=== PATIENT | male | born 1955 | race Hispanic/Latino ===

== ENCOUNTER 2019-04-26 20:13 | Inpatient (IN) | payer MEDICARE ==
[2019-04-26] MEDS ORDERED: GEODON IM PRN (23:23)
[2019-04-26] MEDS ORDERED: WATER FOR INJ Sterile (PF) 10 ML ONE (23:46)
[2019-04-27] MEDS ORDERED: MELATONIN PO PRN (02:21)
[2019-04-27 06:51] LABS: Basophils # (Auto) 0.1 K/mm3 (0.0-0.1); Basophils % (Auto) 0.9 % (0.0-1.8); Eosinophils # (Auto) 0.2 K/mm3 (0.0-0.4); Eosinophils % (Auto) 1.9 % (0.0-4.3); Lymphocytes # (Auto) 4.3 K/mm3 (1.2-5.4); Lymphocytes % (Auto) 44.4 % (13.4-35.0); Mean Corpuscular HGB Conc 36 % (32-34); Mean Corpuscular Volume 101 fl (84-94); Monocytes # (Auto) 0.9 K/mm3 (0.0-0.8); Monocytes % (Auto) 9.5 % (0.0-7.3); Platelet Count 160 K/mm3 (140-440); Red Blood Count 4.08 M/mm3 (3.65-5.03); Red Cell Distribution Width 15.9 % (13.2-15.2)
[2019-04-27 06:53] LABS: Hematocrit 41.2 % (35.5-45.6)
[2019-04-27 07:05] LABS: Hemoglobin 14.7 gm/dl (11.8-15.2)
[2019-04-27] MEDS: BUSPAR PO SCH ×2 (09:12→21:05)
[2019-04-27 10:27] LABS: Alanine Aminotransferase 62 units/L (7-56); Albumin 4.3 g/dL (3.9-5); BUN/Creatinine Ratio 26; Blood Urea Nitrogen 23 mg/dL (9-20); Calcium 9.8 mg/dL (8.4-10.2); Chol/HDL Ratio 6.06 %; HDL Cholesterol 31 mg/dL (40-59); Hemolysis Index 8; LDL Cholesterol,Direct 129 mg/dL (50-130)
[2019-04-27] MEDS: REMERON PO SCH (17:39)
--- NOTE | 2019-04-27 17:59 | History and Physical Report ---
History of Present Illness Date of admission: 04/26/19 21:44 Chief complaint: I was acting crazy History of present illness: 63 YO Male with CVA, Dementia, HLD, Anemia, Depression. Pt admitted to [facility] for psychosis. Pt seen and evaluated upon arrival to his room. Pt is pleasant and cooperative with exam. Pt denies fever, chills, CP, Palpitations, NVD, Trauma, Productive cough, or recent ill contacts,. No reported nursing events. Pt denies any complaints. Past History Past Medical History: anemia, hyperlipidemia, stroke Past Surgical History: Other (Back, Neck surgery) Social history: , lives with family. denies: smoking Family history: hypertension Medications and Allergies Allergies Allergy/AdvReac Type Severity Reaction Status Date / Time No Known Allergies Allergy Verified 04/26/19 23:30 Home Medications Medication Instructions Recorded Confirmed Last Taken Type Aspirin 81 mg PO DAILY 04/27/19 04/27/19 Unknown History Atorvastatin 40 mg PO DAILY 04/27/19 04/27/19 Unknown History B-Complex Tablet PO 04/27/19 Unknown History Belbuca 450 mcg 04/27/19 Unknown History Donepezil 10 mg PO DAILY 04/27/19 04/27/19 Unknown History Ferrous Sulfate 325 mg PO DAILY 04/27/19 04/27/19 Unknown History Lisinopril 20 mg PO DAILY 04/27/19 04/27/19 Unknown History Melatonin 5MG TAB 5 mg PO QHS 04/27/19 04/27/19 Unknown History Mirtazapine 30 mg PO DAILY 04/27/19 04/27/19 Unknown History Sertraline 100 mg PO QHS 04/27/19 04/27/19 Unknown History Vitamin D (Nf) mg PO DAILY 04/27/19 Unknown History Vitamin E 1000units PO DAILY 04/27/19 Unknown History amLODIPine 5 mg PO DAILY 04/27/19 04/27/19 Unknown History busPIRone 30 mg pe PO BID 04/27/19 04/27/19 Unknown History oxyCODONE 10 - 325 mg PO TID 04/27/19 04/27/19 Unknown History Active Meds: Active Medications Buspirone HCl (Buspar) 30 mg PO BID ANDREY Last Admin: 04/27/19 09:12 Dose: 30 mg Documented by: Donepezil HCl (Aricept) 5 mg PO QHS [facility] Melatonin (Melatonin) 5 mg PO QHS PRN PRN Reason: Sleep Mirtazapine (Remeron) 30 mg PO DAILY [facility] Last Admin: 04/27/19 17:39 Dose: 30 mg Documented by: Sertraline HCl (Zoloft) 100 mg PO QHS [facility] Ziprasidone (Geodon) 10 mg IM Q8HR PRN PRN Reason: Agitation Last Admin: 04/26/19 23:53 Dose: 10 mg Documented by: Review of Systems Constitutional: no weight loss, no fever, no sweats Ears, nose, mouth and throat: no ear pain, no tinnitis, no nose pain, no nasal discharge Cardiovascular: no chest pain, no edema, no lightheadedness, no shortness of breath Respiratory: no cough, no hemoptysis, no dyspnea on exertion, no wheezing Gastrointestinal: no abdominal pain, no vomiting, no constipation, no hematemesis Genitourinary Male: no hematuria, no urinary frequency, no incontinence Rectal: no pain, no incontinence Musculoskeletal: low back pain, no neck stiffness, no neck pain Integumentary: no rash, no redness, no wounds Neurological: no transient paralysis, no weakness, no numbness, no seizures Psychiatric: no anxiety, no change in sleep habits, no insomnia, no change in appetite Endocrine: no cold intolerance, no excessive thirst, no nocturia Hematologic/Lymphatic: no easy bruising, no easy bleeding Allergic/Immunologic: no urticaria, no allergic rhinitis Exam - Constitutional Vitals: Temp Pulse Resp BP Pulse Ox 98.2 F 75 16 123/85 98 04/27/19 09:18 04/27/19 09:18 04/27/19 09:18 04/27/19 09:18 04/27/19 09:18 General appearance: Present: no acute distress, well-nourished - EENT Eyes: Present: PERRL ENT: hearing intact, clear oral mucosa - Neck Neck: Present: supple, normal ROM - Respiratory Respiratory effort: normal Respiratory: bilateral: CTA - Cardiovascular Heart Sounds: Present: S1 & S2. Absent: rub, click - Extremities Extremities: pulses symmetrical, No edema Peripheral Pulses: within normal limits - Abdominal General gastrointestinal: Present: soft, non-tender, non-distended, normal bowel sounds Male genitourinary: Present: normal - Integumentary Integumentary: Present: clear, warm, dry - Musculoskeletal Musculoskeletal: gait normal, strength equal bilaterally - Psychiatric Psychiatric: appropriate mood/affect, intact judgment & insight - Neurologic Neurologic: CNII-XII intact, moves all extremities Results - Labs CBC & Chem 7: 04/27/19 06:26 04/27/19 08:59 Labs: Abnormal lab results 04/27/19 04/27/19 Range/Units 06:26 08:59 MCV 101 H (84-94) fl MCH 36 H (28-32) pg MCHC 36 H (32-34) % RDW 15.9 H (13.2-15.2) % Lymph % (Auto) 44.4 H (13.4-35.0) % [place] % (Auto) 9.5 H (0.0-7.3) % [place] # 0.9 H (0.0-0.8) K/mm3 Carbon Dioxide 21 L (22-30) mmol/L BUN 23 H (9-20) mg/dL Glucose 124 H (75-100) mg/dL AST 59 H (5-40) units/L ALT 62 H (7-56) units/L Total Protein 8.4 H (6.3-8.2) g/dL Triglycerides 156 H (2-149) mg/dL HDL Cholesterol 31 L (40-59) mg/dL Assessment and Plan - Patient Problems (1) HTN (hypertension) Current Visit: Yes Status: Acute Qualifiers: Hypertension type: essential hypertension Qualified Code(s): I10 - Essential (primary) hypertension Plan to address problem: Monitor bp q shift, continue prehospital therapy, supportive care. (2) HLD (hyperlipidemia) Current Visit: Yes Status: Acute Qualifiers: Hyperlipidemia type: mixed hyperlipidemia Qualified Code(s): E78.2 - Mixed hyperlipidemia Plan to address problem: low cholesterol diet, supportive care, statin therapy (3) Dementia Current Visit: Yes Status: Acute Qualifiers: Dementia behavioral disturbance: with behavioral disturbance Plan to address problem: continue prehospital therapy, supportive care.
[2019-04-27] MEDS ORDERED: OXYCODONE 10 MG PO SCH (20:00)
[2019-04-27] MEDS: ROXICODONE PO SCH (21:04)
[2019-04-27] MEDS: ZOLOFT PO SCH (21:04)
[2019-04-27] MEDS: ARICEPT PO SCH (21:05)
[2019-04-27] MEDS ORDERED: MELATONIN 5 MG PO SCH (22:00)
[2019-04-27] MEDS ORDERED: NON-FORMULARY (Sertraline 100 MG) PO SCH (22:00)
[2019-04-27] MEDS ORDERED: ARICEPT PO SCH (22:00)
[2019-04-27] MEDS ORDERED: BUSPIRONE 30 MG PO SCH (22:00)
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
[2019-04-28] MEDS ORDERED: NON-FORMULARY (Atorvastatin 40 MG) PO SCH (10:00)
[2019-04-28] MEDS ORDERED: NON-FORMULARY (Amlodipine 5 MG) PO SCH (10:00)
[2019-04-28] MEDS ORDERED: MIRTAZAPINE 30 MG PO SCH (10:00)
[2019-04-28] MEDS ORDERED: NON-FORMULARY (Ferrous Sulfate 325 MG) PO SCH (10:00)
[2019-04-28] MEDS ORDERED: NON-FORMULARY (Aspirin 81 MG) PO SCH (10:00)
[2019-04-28] MEDS ORDERED: DONEPEZIL 10 MG PO SCH (10:00)
[2019-04-28] MEDS ORDERED: NON-FORMULARY (Lisinopril 20 MG) PO SCH (10:00)
[2019-04-28] MEDS: ROXICODONE PO SCH ×3 (11:42→19:50)
[2019-04-28] MEDS: BABY ASPIRIN PO SCH (11:44)
[2019-04-28] MEDS: FEOSOL PO SCH (11:45)
[2019-04-28] MEDS: BUSPAR PO SCH ×2 (11:45→21:23)
[2019-04-28] MEDS: NORVASC PO SCH (11:48)
[2019-04-28] MEDS: ZESTRIL PO SCH (11:51)
--- NOTE | 2019-04-28 17:47 | Progress Note ---
Subjective Date of service: 04/28/19 Principal diagnosis: Dementia with behavioral disturbance Subjective Comment: Patient is confused, disorganized and unable to care for self. He is cooperative with cares, pleasantly confused this morning, denies si/hi/avh. He is compliant with medications. No side effects reported or observed. Objective - Criteria for Continued Treatment Criteria for Continued Treatment: Improving Level of Functioning, Stablizing Level of Functioning, Improving Emotional/Socia - Mental Status Mental Status: Oriented x 1 Person only - Objective Observation Participation Level: Moderate Assessment and Plan - Patient Problems (1) Dementia, Alzheimer's, with behavior disturbance Current Visit: Yes Status: Acute Qualifiers: Alzheimer's disease onset: early-onset Qualified Code(s): G30.0 - Alzheimer's disease with early onset; F02.81 - Dementia in other diseases classified elsewhere with behavioral disturbance Plan to address problem: Patient will be admitted for inpatient psychiatric evaluation, medication adjustment and close monitoring The patient's behavior, mood, sleep and appetite will be closely monitored. Patient will be enrolled in individual and group therapeutic sessions and encouraged to attend. Patient will be provided with a safe and structured environment. Patient's physical health needs will be addressed by the Hospitalist. Social Assessment will be completed and the Red Leader will work with patient and family to ensure a suitable and safe disposition Medication adjustment will be made as clinically indicated
[2019-04-28] MEDS: ZOLOFT PO SCH (21:23)
[2019-04-28] MEDS: REMERON PO SCH (21:23)
[2019-04-28] MEDS: ARICEPT PO SCH (21:23)
[2019-04-29] MEDS: REMERON PO SCH ×2 (04:00→21:06)
[2019-04-29] MEDS: ROXICODONE PO SCH ×3 (10:10→21:05)
[2019-04-29] MEDS: BABY ASPIRIN PO SCH (10:11)
[2019-04-29] MEDS: FEOSOL PO SCH (10:11)
[2019-04-29] MEDS: NORVASC PO SCH (10:11)
[2019-04-29] MEDS: ZESTRIL PO SCH (10:12)
[2019-04-29] MEDS: BUSPAR PO SCH ×2 (10:19→21:07)
[2019-04-29] MEDS: ZOLOFT PO SCH (21:06)
[2019-04-29] MEDS: ARICEPT PO SCH (21:07)
--- NOTE | 2019-04-29 21:15 | Progress Note ---
Subjective Date of service: 04/29/19 Principal diagnosis: Dementia with behavioral disturbance Subjective Comment: Patient is confused, disorganized and unable to care for self. He is cooperative with cares, denies si/hi/avh. He is compliant with medications. No side effects reported or observed. Objective - Criteria for Continued Treatment Criteria for Continued Treatment: Improving Level of Functioning, Stablizing Level of Functioning, Improving Emotional/Socia - Mental Status Mental Status: Oriented x 1 Person only - Objective Observation Participation Level: Moderate Assessment and Plan - Patient Problems (1) Dementia, Alzheimer's, with behavior disturbance Current Visit: Yes Status: Acute Qualifiers: Alzheimer's disease onset: early-onset Qualified Code(s): G30.0 - Alzhe tana's disease with early onset; F02.81 - Dementia in other diseases classified elsewhere with behavioral disturbance Plan to address problem: Patient will be admitted for inpatient psychiatric evaluation, medication adjustment and close monitoring The patient's behavior, mood, sleep and appetite will be closely monitored. Patient will be enrolled in individual and group therapeutic sessions and encouraged to attend. Patient will be provided with a safe and structured environment. Patient's physical health needs will be addressed by the Hospitalist. Social Assessment will be completed and the Senior Property Accountant will work with patient and family to ensure a suitable and safe disposition Medication adjustment will be made as clinically indicated
[2019-04-30] MEDS: ROXICODONE PO SCH ×3 (09:24→21:17)
[2019-04-30] MEDS: BABY ASPIRIN PO SCH (09:26)
[2019-04-30] MEDS: FEOSOL PO SCH (09:26)
[2019-04-30] MEDS: BUSPAR PO SCH ×2 (09:26→21:15)
[2019-04-30] MEDS: ZESTRIL PO SCH (09:26)
[2019-04-30] MEDS: NORVASC PO SCH (09:27)
[2019-04-30] MEDS: ZOLOFT PO SCH (21:14)
[2019-04-30] MEDS: REMERON PO SCH (21:16)
[2019-04-30] MEDS: ARICEPT PO SCH (21:33)
[2019-05-01] MEDS: ROXICODONE PO SCH ×3 (08:10→20:11)
[2019-05-01] MEDS: FEOSOL PO SCH (12:10)
[2019-05-01] MEDS: BUSPAR PO SCH ×2 (12:10→21:21)
[2019-05-01] MEDS: BABY ASPIRIN PO SCH (12:10)
[2019-05-01] MEDS: NORVASC PO SCH (12:13)
[2019-05-01] MEDS: ZESTRIL PO SCH (12:14)
--- NOTE | 2019-05-01 20:34 | Progress Note ---
Subjective Date of service: 04/30/19 Principal diagnosis: Dementia with behavioral disturbance Subjective Comment: Patient is pleasantly confused, calm and pleasant. He is cooperative with cares, denies si/hi/avh. He is compliant with medications. No side effects reported or observed. Objective - Criteria for Continued Treatment Criteria for Continued Treatment: Improving Level of Functioning, Stablizing Level of Functioning, Improving Emotional/Socia - Mental Status Mental Status: Oriented x 1 Person only - Objective Observation Participation Level: Moderate Assessment and Plan - Patient Problems (1) Dementia, Alzheimer's, with behavior disturbance Current Visit: Yes Status: Acute Qualifiers: Alzheimer's disease onset: early-onset Qualified Code(s): G30.0 - Alzheimer's disease with early onset; F02.81 - Dementia in other diseases classified elsewhere with behavioral disturbance Plan to address problem: Patient will be admitted for inpatient psychiatric evaluation, medication adjustment and close monitoring The patient's behavior, mood, sleep and appetite will be closely monitored. Patient will be enrolled in individual and group therapeutic sessions and encouraged to attend. Patient will be provided with a safe and structured environment. Patient's physical health needs will be addressed by the Hospitalist. Social Assessment will be completed and the Test Rack Operator will work with patient and family to ensure a suitable and safe disposition Medication adjustment will be made as clinically indicated
--- NOTE | 2019-05-01 20:36 | Progress Note ---
Subjective Date of service: 04/30/19 Principal diagnosis: Dementia with behavioral disturbance Subjective Comment: Patient is pleasantly confused, calm and pleasant. He is cooperative with cares, denies si/hi/avh. He is compliant with medications. No side effects reported or observed. Objective - Criteria for Continued Treatment Criteria for Continued Treatment: Improving Level of Functioning, Stablizing Level of Functioning - Mental Status Mental Status: Oriented x [address] - Objective Observation Participation Level: Moderate Assessment and Plan - Patient Problems (1) Dementia, Alzheimer's, with behavior disturbance Current Visit: Yes Status: Acute Qualifiers: Alzheimer's disease onset: early-onset Qualified Code(s): G30.0 - Alzheimer's disease with early onset; F02.81 - Dementia in other diseases classified elsewhere with behavioral disturbance Plan to address problem: Patient will be admitted for inpatient psychiatric evaluation, medication adjustment and close monitoring The patient's behavior, mood, sleep and appetite will be closely monitored. Patient will be enrolled in individual and group therapeutic sessions and encouraged to attend. Patient will be provided with a safe and structured environment. Patient's physical health needs will be addressed by the Hospitalist. Social Assessment will be completed and the Patriot Missile Air Defense Artillery will work with patient and family to ensure a suitable and safe disposition Medication adjustment will be made as clinically indicated
[2019-05-01] MEDS: ARICEPT PO SCH (21:20)
[2019-05-01] MEDS: REMERON PO SCH (21:21)
[2019-05-01] MEDS: ZOLOFT PO SCH (21:21)
[2019-05-02] MEDS: ROXICODONE PO SCH ×2 (07:12→13:58)
--- NOTE | 2019-05-02 08:26 | Discharge Summary ---
Providers - Providers Date of Admission: 04/26/19 21:44 Date of discharge: 05/02/19 Attending physician: KINJAL WALKER MD 04/27/19 08:00 Consult to Physician [CONS] Routine Comment: Consulting Provider: CALLY SUTTON Physician Instructions: Reason For Exam: NEW ADMIT H&P Primary care physician: KINJAL WALKER MD Hospitalization Reason for admission: Increased agitation and aggressive behavior Condition: Stable Hospital course: The patient was provided inpatient psychiatric treatment with safe and supp ortive environment, group therapy, individual counseling, psychiatric medication, medication adjustment, adverse effect monitor, medical evaluation, medical treatment, social service assessment, family/social support meeting, placement assessment and psycho-education. The patients mood, anxiety, thoughts, stress management skill, cognition, impulse/anger control, motivation, understanding of disease, compliance to treatment and appreciation on family/social support are improved and stabilized. At the time of discharge, the patient had no suicidal ideas, no homicidal ideas, no aggressive thoughts, no endangering behavior and no debilitating adverse effects. The patient agreed on the treatment plan, understood the risk, benefit, alternative treatment, potential consequence of no treatment, and gave informed consent. The patient was advised to be compliant with medications, not to use drugs and not to drink alcohol. The patient understands that if suicidal ideas, homicidal ideas, or any endangering thoughts arise, the patient should immediately seek for emergent assistance including but not limited to crisis hot line and emergency room. Follow up with out-patient Psychiatrist and PCP within 14 - 21 days of discharge. Disposition: -01 TO HOME OR SELFCARE Time spent for discharge: 38 mins Allergies/Adverse Reactions: Allergies No Known Allergies Allergy (Verified 04/26/19 23:30) Vital Signs: Last Vital Signs Temp 98.4 F 05/01/19 20:47 Pulse 81 05/01/19 20:47 Resp 18 05/01/19 20:47 BP 128/75 05/01/19 20:47 Pulse Ox 96 05/01/19 20:47 Last Lab: Laboratory Last Values WBC 9.7 K/mm3 (4.5-11.0) 04/27/19 06:26 RBC 4.08 M/mm3 (3.65-5.03) 04/27/19 06:26 Hgb 14.7 gm/dl (11.8-15.2) 04/27/19 06:26 Hct 41.2 % (35.5-45.6) 04/27/19 06:26 MCV 101 fl (84-94) H 04/27/19 06:26 MCH 36 pg (28-32) H 04/27/19 06:26 MCHC 36 % (32-34) H 04/27/19 06:26 RDW 15.9 % (13.2-15.2) H 04/27/19 06:26 Plt Count 160 K/mm3 (140-440) 04/27/19 06:26 Lymph % (Auto) 44.4 % (13.4-35.0) H 04/27/19 06:26 [place] % (Auto) 9.5 % (0.0-7.3) H 04/27/19 06:26 Eos % (Auto) 1.9 % (0.0-4.3) 04/27/19 06:26 Baso % (Auto) 0.9 % (0.0-1.8) 04/27/19 06:26 Lymph # 4.3 K/mm3 (1.2-5.4) 04/27/19 06:26 [place] # 0.9 K/mm3 (0.0-0.8) H 04/27/19 06:26 Eos # 0.2 K/mm3 (0.0-0.4) 04/27/19 06:26 Baso # 0.1 K/mm3 (0.0-0.1) 04/27/19 06:26 Seg Neutrophils % 43.3 % (40.0-70.0) 04/27/19 06:26 Seg Neutrophils # 4.2 K/mm3 (1.8-7.7) 04/27/19 06:26 Sodium 140 mmol/L (137-145) 04/27/19 08:59 Potassium 3.7 mmol/L (3.6-5.0) 04/27/19 08:59 Chloride 102.3 mmol/L (98-107) 04/27/19 08:59 Carbon Dioxide 21 mmol/L (22-30) L 04/27/19 08:59 20 mmol/L 04/27/19 08:59 BUN 23 mg/dL (9-20) H 04/27/19 08:59 0.9 mg/dL (0.8-1.5) 04/27/19 08:59 Estimated GFR > 60 ml/min 04/27/19 08:59 26 % 04/27/19 08:59 Glucose 124 mg/dL (75-100) H 04/27/19 08:59 POC Glucose 109 (70-105) H 04/29/19 19:27 5.2 % (4-6) 04/27/19 06:26 Calcium 9.8 mg/dL (8.4-10.2) 04/27/19 08:59 0.50 mg/dL (0.1-1.2) 04/27/19 08:59 AST 59 units/L (5-40) H 04/27/19 08:59 ALT 62 units/L (7-56) H 04/27/19 08:59 118 units/L (35-129) 04/27/19 08:59 8.4 g/dL (6.3-8.2) H 04/27/19 08:59 4.3 g/dL (3.9-5) 04/27/19 08:59 1.0 % 04/27/19 08:59 Triglycerides 156 mg/dL (2-149) H 04/27/19 08:59 Cholesterol 188 mg/dL (50-199) 04/27/19 08:59 129 mg/dL (50-130) 04/27/19 08:59 31 mg/dL (40-59) L 04/27/19 08:59 6.06 % 04/27/19 08:59 - Discharge Diagnoses (1) Dementia, Alzheimer's, with behavior disturbance Status: Acute Qualifiers: Alzheimer's disease onset: early-onset Qualified Code(s): G30.0 - Alzheimer's disease with early onset; F02.81 - Dementia in other diseases classified elsewhere with behavioral disturbance Core Measure Documentation - Palliative Care Palliative Care/ Comfort Measures: Not Applicable - Core Measures Any of the following diagnoses?: none Exam - Constitutional Vitals: Temp Pulse Resp BP Pulse Ox 98.4 F 81 18 128/75 96 05/01/19 20:47 05/01/19 20:47 05/01/19 20:47 05/01/19 20:47 05/01/19 20:47 General appearance: Present: no acute distress, well-nourished - EENT Eyes: Present: PERRL ENT: hearing intact, clear oral mucosa - Neck Neck: Present: supple, normal ROM - Respiratory Respiratory effort: normal Plan Activity: advance as tolerated, no driving until cleared by PCP Weight Bearing Status: Full Weight Bearing Diet: regular Follow up with: KINJAL WALKER MD [Primary Care Provider] - 7 Days Forms: Discharge Signature Page
[2019-05-02] MEDS: BABY ASPIRIN PO SCH (10:21)
[2019-05-02] MEDS: FEOSOL PO SCH (10:21)
[2019-05-02] MEDS: BUSPAR PO SCH (10:21)
[2019-05-02] MEDS: NORVASC PO SCH (10:22)
[2019-05-02] MEDS: ZESTRIL PO SCH (10:23)
[2019-05-02 10:25] VITALS: BP 139/74
== END 2019-05-02 16:30 | disposition home or self-care (01) | DRG 57 ==
LOC: 5A 21:44
PROVIDERS: ADMIT Psychiatry & Neurology Psychiatry; ATTEND Psychiatry & Neurology Psychiatry
DX: G30.0 Alzheimer's disease with early onset (principal); F02.81 Dementia in other diseases classified elsewhere, unspecified severity, with behavioral disturbance; N39.0 Urinary tract infection, site not specified; F17.210 Nicotine dependence, cigarettes, uncomplicated; F32.9 Major depressive disorder, single episode, unspecified; E78.2 Mixed hyperlipidemia; F41.9 Anxiety disorder, unspecified; G89.29 Other chronic pain; I10 Essential (primary) hypertension; Z86.73 Personal history of transient ischemic attack (TIA), and cerebral infarction without residual deficits; Z82.49 Family history of ischemic heart disease and other diseases of the circulatory system
CPT/HCPCS: 36415; 80053; 80061; 82962; 83036; 85025; G0378; A9270-GY; J3486